=== PATIENT | female | born 1940 | race Caucasian/White ===

== ENCOUNTER 2017-11-18 16:38 | Observation (INO) ==
[2017-11-18] MEDS ORDERED: *HR* Promethazine 25 MG/ML VIAL IVP PRN (22:51)
[2017-11-18] MEDS ORDERED: Naloxone 0.4 MG/ML INJ IVP PRN (22:51)
[2017-11-18] MEDS ORDERED: Ondansetron 4 MG/2 ML VIAL IVP PRN (22:51)
[2017-11-18] MEDS ORDERED: 0.9 % Sodium Chloride 1,000 ML IVC SCH (23:00)
--- NOTE | 2017-11-19 00:20 | Internal Med History&Physical ---
Date of Encounter: 11/18/17 Time of Encounter: 23:50 Assessment and Plan (1) Acute left flank pain Current visit: Yes Status: Acute Place the pt into Med Surg for observation Reviewed Ct of Abd / pelvis report from [facility] Concerning for just passed renal calculi cont symptomatic and supportive care with IV hydration and IV analgesics recommend to f/u with Urologist as an out pt (2) Acute kidney injury superimposed on CKD Current visit: Yes Status: Acute Slightly elevated Cr @ 1.76 than baseline Cont IV hydration Cont close monitoring If Cr does not improve with IV hydration will consult her Nephro Dr. Walker in AM Held diuretics (3) Renal calculus, left Current visit: Yes Status: Acute (4) HTN (hypertension) Current visit: Yes Status: Acute resumed all home meds except HCTZ / Triamterene Qualifiers: Hypertension type: essential hypertension Qualified Code(s): I10 - Essential (primary) hypertension (5) HLD (hyperlipidemia) Current visit: Yes Status: Acute resumed home meds Qualifiers: Hyperlipidemia type: unspecified Qualified Code(s): E78.5 - Hyperlipidemia , unspecified (6) Hypothyroidism Current visit: No Status: Chronic Qualifiers: Qualified Code(s): E03.9 - Hypothyroidism, unspecified Internal Medicine - H&P: HPI Chief complaint: Left flank pain Admitted From: Emergency Dept Plans for Post Hospital Care: Home History of present illness: Ms. Taylor is a 77 year old female with known PMH of HTN, HLD, Renal cancer / cyst s/p Rt nephrectomy 3 yrs ago, follows with Dr. Borges and Dr. Murdock presented to [facility] today c/o Left flank pain started this morning. Her CT of Abd showed mild distension of the Left renal collecting system and ureter without calculus. She does have some periureteric stranding possibly due to recently passed renal calculi. Her Cr also slightly elevated @ 1.76 than baseline. Pt was transferred to our hospital for further care. Pt denied any CP / SOB now. Pt states she is feeling better now. Her left flank pain also improved. Past Med Surg Social Fam HX - Past Medical History Medical history: diabetes, hyperlipidemia, hypertension, thyroid disease Psychiatric history: no psych history - Past Surgical History Surgical History: cancer surgery, cataract, cholecystectomy, herniorrhaphy, hysterectomy, orthopedic, other, other - Social History Smoking Status: Never smoker Smokeless Tobacco Status: No Alcohol use: none Drug use: none - Family History Mother Living Status: Hx Family Neurologic Disorders: Yes (mini stroke) Father Living Status: Internal Medicine - H&P: Meds Allopurinol [Zyloprim] 300 mg PO DAILY 05/31/15 [History] Aspirin Enteric Coated [Aspirin EC] 81 mg PO DAILY 05/31/15 [History] Atenolol [Tenormin] 100 mg PO BID 05/31/15 [History] Levothyroxine [Synthroid] 150 mcg PO DAILY 05/31/15 [History] Losartan [Cozaar] 100 mg PO DAILY 05/31/15 [History] Multivitamin/Iron/Folic Acid [Centrum Complete Multivit Tab] 1 tab PO DAILY [History] Pravastatin Sodium 40 mg PO HS 05/31/15 [History] Ca/D3/Mag#11/Zinc/Medical Manager/Juno/Bor [Caltrate 600+D Plus Tablet] 1 tab PO DAILY 10/18 [History] Glucosamine Sulfate Dipot Chlr [Glucosamine] 500 mg PO DAILY 10/19/15 [History] Vitamin B Complex [B Complex] 1 tab PO DAILY 10/19/15 [History] B2/Vits A,C,E/Lut/Zeaxanth/Min [Icaps Tablet] 1 tab PO DAILY 02/21/17 [History] Betamethasone Dipropionate 1 appl TP DAILY PRN 02/21/17 [History] valACYclovir [Valtrex] 500 mg PO TID MDD FOR 7 DAYS 02/21/17 [History] Triamterene/HCTZ 37.5/25mg [Dyazide] 1 tab PO DAILY #30 tablet 02/22/17 [Rx] 3 Allergy/AdvReac Type Severity Reaction Status Date / Time Sulfa (Sulfonamide Allergy Nausea Verified 11/18/17 12:30 Antibiotics) All Systems PM: A 10-system review of systems was performed and is negative for pertinent findings except as documented above in the HPI. Review of systems: All the systems are reviewed everything is benign except the systems and symptoms I mentioned in the history of present illness - Constitutional Vitals: Temp Pulse Resp BP Pulse Ox 97.4 F L 59 16 119/67 96 11/18/17 22:49 11/18/17 22:49 11/18/17 22:49 11/18/17 22:49 11/18/17 22:49 General appearance: Present: A&O X 3, no acute distress, answers questions appropriately - Head Head exam: Present: atraumatic, normal inspection - Neck Neck exam general surgery: Present: supple - Respiratory Respiratory exam: Present: decreased breath sounds. Absent: rales, respiratory distress, rhonchi, wheezes - Cardiovascular Cardiovascular exam: Present: RRR, +S1, +S2. Absent: tachycardia - GI/Abdominal GI/Abdominal exam: Present: normal bowel sounds, soft. Absent: rebound, rigid, tenderness - Extremities Exam Extremities exam: Absent: calf tenderness, pedal edema, tenderness - Back Exam Back exam: Absent: CVA tenderness (L), CVA tenderness (R) - Neurological Exam Neurological exam: Present: alert, oriented X3 - Psychiatric Psychiatric exam: Present: normal affect, normal mood
[2017-11-19 05:57] LABS: Basophils # 0.1 K/mcL (0.0-0.2); Basophils % 0.7 %; Eosinophils # 0.3 K/mcL (0.0-0.6); Eosinophils % 2.8 %; Hematocrit 32.7 % (35.3-44.9); Hemoglobin 10.8 g/dL (11.5-15.4); Immature Granulocytes % 0.2 % (0-4); Lymphocytes % 21.9 %; Mean Corpuscular Hemoglobin 31.3 pg (28.0-33.3); Mean Corpuscular Volume 94.8 fL (83.0-100.0); Mean Platelet Volume 11.5 fL (9.4-12.4); Monocytes # 0.8 K/mcL (0.0-1.3); Monocytes % 8.6 %; Neutrophils # 5.9 K/mcL (1.6-8.9); Platelet Count 241 K/mcL (140-400); Red Blood Count 3.45 M/mcL (3.82-4.97); Segmented Neutrophils % 65.8 %
[2017-11-19 06:22] LABS: Calcium 8.8 mg/dL (8.6-10.3); Magnesium 1.6 mg/dL (1.6-2.6); Potassium 4.6 mEq/L (3.5-5.1)
[2017-11-19] MEDS ORDERED: FluocinoNIDE 0.05% CRM 15 GM TUBE TP PRN (08:09)
[2017-11-19] MEDS ORDERED: cloNIDine HCl 0.1 MG TABLET PO PRN (08:09)
[2017-11-19] MEDS ORDERED: NON-FORMULARY MEDICATION 1 EACH EACH (Multivitamin/Iron/Folic Acid [Centrum Complete Multi PO SCH (09:00)
[2017-11-19] MEDS ORDERED: NON-FORMULARY MEDICATION 1 EACH EACH (Vitamin B Complex [B Complex] 1 TAB) PO SCH (09:00)
[2017-11-19] MEDS ORDERED: GLUCOSAMINE SULFATE DIPOT CHLR 500 MG PO SCH (09:00)
[2017-11-19] MEDS: Aspirin Enteric Coated 81 MG Tablet PO SCH (09:41)
[2017-11-19] MEDS: Multivit/Ca/Min/Fe/FA 1 TAB TABLET PO SCH (09:41)
[2017-11-19] MEDS: amLODIPine 5 MG TABLET PO SCH ×2 (09:44→22:09)
[2017-11-19] MEDS: Clotrimazole 1% CRM 15 GM TUBE TP SCH (10:30)
--- NOTE | 2017-11-19 11:04 | Internal Med Progress Note ---
Date of Encounter: 11/19/17 Time of Encounter: 11:01 - Assessment and plan (1) Hypothyroidism Current Visit: Yes Status: Chronic Assessment and plan: continue home meds Qualifiers: Qualified Code(s): E03.9 - Hypothyroidism, unspecified (2) Acute kidney injury superimposed on CKD Current Visit: Yes Status: Acute Assessment and plan: Resolved Resume home meds (3) Acute left flank pain Current Visit: Yes Status: Resolved Assessment and plan: resolved Secondary to renal colic No evidence of UTI or pyelo Continue supportive care D/C IVF (4) Renal calculus, left Current Visit: Yes Status: Acute Assessment and plan: resolved, patient may have passed a stone, (5) HTN (hypertension) Current Visit: Yes Status: Chronic Assessment and plan: resume home meds Qualifiers: Hypertension type: essential hypertension Qualified Code(s): I10 - Essential (primary) hypertension (6) HLD (hyperlipidemia) Current Visit: Yes Status: Chronic Assessment and plan: resume home meds Qualifiers: Hyperlipidemia type: unspecified Qualified Code(s): E78.5 - Hyperlipidemia , unspecified - Time Spent With Patient Total time spent is greater than 50% in coordination of care (as documented) at patient's floor/unit and/or counseling patient: - Subjective Interval history: Seen and evaluated at bedside Denies new complains Reports her L flank pain has improved We will resume home diuretics/ARB and repeat Chem a., if stable, will discharge a.m - Constitutional Vitals: Temp Pulse Resp BP Pulse Ox 97.9 F 64 14 123/65 95 11/19/17 06:45 11/19/17 06:45 11/19/17 06:45 11/19/17 06:45 11/19/17 06:45 General appearance: Present: A&O X 3, no acute distress, answers questions appropriately - Head Head exam: Present: atraumatic, normocephalic - Eye Eye exam: Present: PERRL, conjuntiva pink, sclera anicteric Pupils: Present: PERRL - Neck Neck exam general surgery: Present: supple, trachea midline. Absent: lymphadenopathy - Respiratory Respiratory exam: Present: CTAB. Absent: accessory muscle use, rales, rhonchi, wheezes - Cardiovascular Cardiovascular exam: Present: RRR, +S1, +S2. Absent: diastolic murmur, gallop, rubs, systolic murmur - GI/Abdominal GI/Abdominal exam: Present: normal bowel sounds, soft, no peritoneal signs. Absent: distended, tenderness - Extremities Exam Extremities exam: Present: warm, radial pulses palpable and symmetrical. Absent : calf tenderness, cyanotic, pedal edema - Back Exam Back exam: Absent: CVA tenderness (L), CVA tenderness (R) Additional comments: Multiple skin lesions, following up with dermatology as out-patient - Neurological Exam Neurological exam: Present: CN II-XII intact, oriented X3, no focal deficits. Absent: pronater drift, facial droop, speech deficit - Skin Skin exam: Present: dry, intact Internal Medicine: Result - Labs CBC & Chem 7: 11/19/17 03:55 11/19/17 03:55 Labs: Short CBC 11/19/17 Range/Units 03:55 WBC 9.0 (4.3-11.1) K/mcL Hgb 10.8 L D (11.5-15.4) g/dL Hct 32.7 L (35.3-44.9) % Plt Count 241 (140-400) K/mcL Neutrophils # 5.9 (1.6-8.9) K/mcL BMP 11/19/17 03:55 Sodium 139 Potassium 4.6 Chloride 110 H Carbon Dioxide 21 L BUN 44 H Creatinine 1.41 H Glucose 88 Calcium 8.8 Consult Discharge Plan - Plan Referrals: Regulo Hernandez MD [Primary Care Provider] -
[2017-11-20] MEDS: Clotrimazole 1% CRM 15 GM TUBE TP SCH ×3 (03:21→22:35)
[2017-11-20] MEDS: Acetaminophen 325 MG TABLET PO PRN ×2 (03:51→09:31)
[2017-11-20 05:58] LABS: Calcium 9.1 mg/dL (8.6-10.3); Potassium 4.5 mEq/L (3.5-5.1)
[2017-11-20] MEDS: amLODIPine 5 MG TABLET PO SCH ×2 (09:31→20:45)
[2017-11-20] MEDS: Multivit/Ca/Min/Fe/FA 1 TAB TABLET PO SCH (09:31)
[2017-11-20] MEDS: Aspirin Enteric Coated 81 MG Tablet PO SCH (09:31)
[2017-11-20] MEDS: *HR* HYDROcodone/Acet 5/325 mg TABLET PO PRN (10:29)
[2017-11-20] MEDS ORDERED: *HR* HYDROmorphone (PF) 1 MG/ML SYRINGE IVP ONE (10:39)
--- NOTE | 2017-11-20 10:44 | Internal Med Progress Note ---
Date of Encounter: 11/20/17 Time of Encounter: 10:43 - Assessment and plan (1) Hypothyroidism Current Visit: Yes Status: Chronic Assessment and plan: continue home meds Qualifiers: Hypothyroidism type: unspecified Qualified Code(s): E03.9 - Hypothyroidism , unspecified (2) Acute kidney injury superimposed on CKD Current Visit: Yes Status: Acute Assessment and plan: Resolved continue home meds encourage liberal fluid intake (3) Acute left flank pain Current Visit: Yes Status: Resolved Assessment and plan: resolved initially Secondary to renal colic No evidence of UTI or pyelo Patient had a recurrence of pain this a.m Repeat UA, obtain renal USS (4) Renal calculus, left Current Visit: Yes Status: Acute Assessment and plan: resolved, patient may have passed a stone, (5) HTN (hypertension) Current Visit: Yes Status: Chronic Assessment and plan: continue home meds Qualifiers: Hypertension type: essential hypertension Qualified Code(s): I10 - Essential (primary) hypertension (6) HLD (hyperlipidemia) Current Visit: Yes Status: Chronic Assessment and plan: continue home meds Qualifiers: Hyperlipidemia type: unspecified Qualified Code(s): E78.5 - Hyperlipidemia , unspecified (7) Hematuria Current Visit: Yes Status: Acute Assessment and plan: repeat REnal USS Possibly due to calculus, r/o cystitis Qualifiers: Hematuria type: unspecified type Qualified Code(s): R31.9 - Hematuria, unspecified (8) DVT prophylaxis Current Visit: Yes Status: Acute Assessment and plan: SQ heparin - Time Spent With Patient Total time spent is greater than 50% in coordination of care (as documented) at patient's floor/unit and/or counseling patient: - Subjective Interval history: Seen and evaluated at bedside She was ambulatory but still complaining of left flank pain, the patient stated that her urine had cleared up yesterday. This morning her urine was orange in color. This was witnessed by Claudia. No inna hematuria. Her kidney function has remarkably improved and is stable. Her initial CAT scan had showed some perinephric stranding attributed to passage of stone. We will repeat her urine analysis with culture to rule out cystitis. We will also repeat a retroperitoneal ultrasound scan to assess for pyelonephritis. She is hemodynamically stable and ambulatory. Would also ensure pain control. - Constitutional Vitals: Temp Pulse Resp BP Pulse Ox 98.4 F 61 14 137/70 98 11/20/17 07:00 11/20/17 07:00 11/20/17 07:00 11/20/17 07:00 11/20/17 07:00 General appearance: Present: mild distress, A&O X 3, no acute distress, obese, answers questions appropriately - Head Head exam: Present: atraumatic, normocephalic - Eye Eye exam: Present: PERRL, conjuntiva pink, sclera anicteric Pupils: Present: PERRL - Neck Neck exam general surgery: Present: supple, trachea midline. Absent: lymphadenopathy - Respiratory Respiratory exam: Present: CTAB. Absent: accessory muscle use, rales, rhonchi, wheezes - Cardiovascular Cardiovascular exam: Present: RRR, +S1, +S2. Absent: diastolic murmur, gallop, rubs, systolic murmur - GI/Abdominal GI/Abdominal exam: Present: normal bowel sounds, soft, no peritoneal signs. Absent: distended, tenderness - Extremities Exam Extremities exam: Present: warm, radial pulses palpable and symmetrical. Absent : calf tenderness, cyanotic, pedal edema - Back Exam Back exam: Absent: CVA tenderness (L), CVA tenderness (R) - Neurological Exam Neurological exam: Present: CN II-XII intact, oriented X3, no focal deficits. Absent: pronater drift, facial droop, speech deficit - Skin Skin exam: Present: dry, intact Internal Medicine: Result - Labs CBC & Chem 7: 11/19/17 03:55 11/20/17 04:19 Labs: BMP 11/20/17 04:19 Sodium 135 L Potassium 4.5 Chloride 102 Carbon Dioxide 24 BUN 34 H Creatinine 1.22 H Glucose 104 Calcium 9.1 Consult Discharge Plan - Plan Referrals: Regulo Hernandez MD [Primary Care Provider] -
[2017-11-21 05:32] LABS: Basophils # 0.1 K/mcL (0.0-0.2); Basophils % 0.7 %; Eosinophils # 0.3 K/mcL (0.0-0.6); Eosinophils % 2.9 %; Hematocrit 34.7 % (35.3-44.9); Hemoglobin 11.6 g/dL (11.5-15.4); Immature Granulocytes % 0.3 % (0-4); Lymphocytes # 1.7 K/mcL (0.6-4.6); Lymphocytes % 17.4 %; Mean Corpuscular HGB Conc 33.4 g/dL (31.6-35.5); Mean Corpuscular Hemoglobin 31.4 pg (28.0-33.3); Mean Corpuscular Volume 93.8 fL (83.0-100.0); Mean Platelet Volume 11.5 fL (9.4-12.4); Monocytes # 0.6 K/mcL (0.0-1.3); Neutrophils # 7.3 K/mcL (1.6-8.9); Platelet Count 252 K/mcL (140-400); Red Cell Distribution Width 13.6 % (11.5-14.5); Segmented Neutrophils % 72.7 %
[2017-11-21 05:52] LABS: Calcium 8.7 mg/dL (8.6-10.3); Potassium 4.4 mEq/L (3.5-5.1)
[2017-11-21] MEDS: *HR* HYDROcodone/Acet 5/325 mg TABLET PO PRN (08:16)
[2017-11-21] MEDS: Aspirin Enteric Coated 81 MG Tablet PO SCH (10:16)
[2017-11-21] MEDS: Multivit/Ca/Min/Fe/FA 1 TAB TABLET PO SCH (10:17)
[2017-11-21] MEDS: amLODIPine 5 MG TABLET PO SCH (10:17)
[2017-11-21] MEDS: Clotrimazole 1% CRM 15 GM TUBE TP SCH (10:17)
[2017-11-21 10:30] VITALS: BP 133/70
--- NOTE | 2017-11-21 11:06 | Discharge Summary ---
- NOTES TO OUTPATIENT PROVIDER Notes to Outpatient Provider: Pt was admitted for L flank pain, presumed by CT scan to be due to a passed calculus, no stone on exam, no UTI on UA. She was managed supportively. She also had JUAN on CKD which resolved with IV fluid hydration and holding her diuretics at home. Her renal function has returned to baseline despite use of her medications. She needs a follow-up with urology Orders not resulted at time of discharge: Pending orders 11/20/17 10:40 UA w. reflex culture [Urinalysis Reflex Cult & Micro] [URIN] Stat Date of Encounter: 11/21/17 Time of Encounter: 10:45 - Discharge Diagnosis (1) Hypothyroidism Priority: Secondary Status: Chronic Qualifiers: Hypothyroidism type: unspecified Qualified Code(s): E03.9 - Hypothyroidism , unspecified (2) Acute kidney injury superimposed on CKD Priority: Primary Status: Resolved (3) Acute left flank pain Priority: Primary Status: Resolved (4) Renal calculus, left Priority: Secondary Status: Acute (5) HTN (hypertension) Priority: Secondary Status: Chronic Qualifiers: Hypertension type: essential hypertension Qualified Code(s): I10 - Essential (primary) hypertension (6) HLD (hyperlipidemia) Priority: Secondary Status: Chronic Qualifiers: Hyperlipidemia type: unspecified Qualified Code(s): E78.5 - Hyperlipidemia , unspecified (7) Hematuria Priority: Primary Status: Resolved Qualifiers: Hematuria type: unspecified type Qualified Code(s): R31.9 - Hematuria, unspecified (8) DVT prophylaxis Priority: Primary Status: Acute Hospital course: Ms. Taylor is a 77 year old female with hx of CKD III, status post nephrectomy 3 years ago for throat urology, hypertension, hyperlipidemia. She presented with left flank pain to breathe. Clear, was transferred to [facility] for further management. Workup revealed a KI and security, and CAT scan showed some perinephric stranding suspected to be due to a stone that had just been passed. Urine analysis does not show infection. The patient was afebrile with no nausea or vomiting. Patient was admitted and managed supportively with intravenous fluids and pain control. She continued to complain of left flank pain said to be muscular in nature specific in nature. Repeat renal ultrasound shows no stones, mild left hydronephrosis. No evidence of metastatic disease. JUAN rrsolved with fluid hydration, renal function has been stable. Patient is medically stable to be discharged home. We encouraged oral hydration as well as discharged her on analgesics. Spoke t urology for follow up as out- patient. Educated on sinister signs and symptoms and to represent to ER should they occur Verbalized understanding Discharge discussed with: patient, nurse, case management - Time Spent with Patient Total time spent providing and/or coordinating discharge services: Less than 30 minutes - Discharge Medications Prescriptions: Tramadol HCl [Ultram] 50 mg PO BID PRN 5 Days #10 tab PRN Reason: Moderate Pain Home Medications: Allopurinol [Zyloprim] 300 mg PO DAILY 05/31/15 [History] Aspirin Enteric Coated [Aspirin EC] 81 mg PO DAILY 05/31/15 [History] Atenolol [Tenormin] 100 mg PO BID 05/31/15 [History] Losartan [Cozaar] 100 mg PO DAILY 05/31/15 [History] Multivitamin/Iron/Folic Acid [Centrum Complete Multivit Tab] 1 tab PO DAILY [History] Pravastatin Sodium 40 mg PO HS 05/31/15 [History] Ca/D3/Mag#11/Zinc/Pattern Storage Clerk/Juno/Bor [Caltrate 600+D Plus Tablet] 1 tab PO DAILY 10/18 [History] Glucosamine Sulfate Dipot Chlr [Glucosamine] 500 mg PO DAILY 10/19/15 [History] Vitamin B Complex [B Complex] 1 tab PO DAILY 10/19/15 [History] B2/Vits A,C,E/Lut/Zeaxanth/Min [Icaps Tablet] 1 tab PO DAILY 02/21/17 [History] Betamethasone Dipropionate 1 appl TP DAILY PRN 02/21/17 [History] Triamterene/HCTZ 37.5/25mg [Dyazide] 1 tab PO DAILY #30 tablet 02/22/17 [Rx] Ciclopirox Olamine [Ciclopirox] 1 appl TP BID 11/19/17 [History] Levothyroxine Sodium [Levoxyl] 125 mcg PO DAILY 11/19/17 [History] amLODIPine [Norvasc] 5 mg PO BID 11/19/17 [History] cloNIDine HCl [Clonidine HCl] 0.2 mg PO BID PRN 11/19/17 [History] Acetaminophen [Tylenol] 650 mg PO Q6HR PRN tablet 11/21/17 [Rx] Docusate [Colace] 100 mg PO BID PRN capsule 11/21/17 [Rx] Tramadol HCl [Ultram] 50 mg PO BID PRN 5 Days #10 tab 11/21/17 [Rx] Allergies/Adverse Reactions: 3 Allergy/AdvReac Type Severity Reaction Status Date / Time Sulfa (Sulfonamide Allergy Nausea Verified 11/18/17 12:30 Antibiotics) Date of admission: 11/18/17 18:22 Primary care physician: Regulo Hernandez MD Discharging clinician: Sean Lisa Anticipated date of discharge: 11/21/17 - Constitutional Vitals: Temp Pulse Resp BP Pulse Ox 97.6 F 58 16 133/70 98 11/21/17 10:30 11/21/17 10:30 11/21/17 10:30 11/21/17 10:30 11/21/17 10:30 General appearance: Present: A&O X 3, no acute distress, obese, answers questions appropriately - Head Head exam: Present: atraumatic, normocephalic - Eye Eye exam: Present: PERRL, conjuntiva pink, sclera anicteric Pupils: Present: PERRL - Neck Neck exam general surgery: Present: supple, trachea midline. Absent: lymphadenopathy - Respiratory Respiratory exam: Present: CTAB. Absent: accessory muscle use, rales, rhonchi, wheezes - Cardiovascular Cardiovascular exam: Present: RRR, +S1, +S2. Absent: diastolic murmur, gallop, rubs, systolic murmur - GI/Abdominal GI/Abdominal exam: Present: normal bowel sounds, soft, no peritoneal signs. Absent: distended, tenderness - Extremities Exam Extremities exam: Present: warm, radial pulses palpable and symmetrical. Absent : calf tenderness, cyanotic, pedal edema - Back Exam Back exam: Absent: CVA tenderness (L), CVA tenderness (R) - Neurological Exam Neurological exam: Present: alert, CN II-XII intact, oriented X3, no focal deficits. Absent: pronater drift, facial droop, speech deficit - Skin Skin exam: Present: dry, intact - Patient Status Disposition: Home, Self-Care Condition: Good Functional capacity at discharge: independent ambulation Overall status at discharge: patient is back to baseline - Discharge Instructions Instructions: Hypothyroidism (DC), Chronic Hypertension (DC) Follow Up With: Regulo Hernandez MD [Primary Care Provider] - 11/27/17 1:30 pm - Diet and Activity Activity: resume usual activities as tolerated Diet: low salt diet, other (renal diet)
== END 2017-11-21 12:08 | disposition home or self-care (01) ==
LOC: 3ANU → SUATTDRO 18:22
PROVIDERS: ADMIT Family Medicine; ATTEND Internal Medicine